=== PATIENT | female | born 2000 | race Caucasian/White ===

== ENCOUNTER 2024-05-18 11:20 | Inpatient (IN) ==
[2024-05-18] MEDS ORDERED: Al Hydrox/Mg Hydrox/Simet LIQ 30 ML UDC PO PRN ×2 (15:51→15:52)
[2024-05-18 16:37] LABS: ABS Lymphocytes 1.6 10^3/uL (1.0-4.8); ABS Monocytes 0.5 10^3/uL (0.0-0.9); ABS Neutrophils 4.3 10^3/uL (1.5-7.6); ABS Nucleated RBC 0.01 10^3/ul; Eosinophil % 0.6 %; Hematocrit 42.8 % (35-45); Hemoglobin 14.4 g/dL (11.5-14.3); Lymphocyte % 25.1 %; Mean Corpuscular Hemoglobin 27.9 pg (27-33); Mean Corpuscular Hgb Conc 33.5 g/dL (31-36); Mean Corpuscular Volume 83.2 fL (80-97); Mean Platelet Volume 7.7 fL (7.5-11.2); Nucleated Red Blood Cells % 0.2 %/100WBC (0.0-0.8); Platelet Count 293 10^3/uL (150-450); Red Blood Count 5.14 10^6/uL (3.63-4.92); Red Cell Distribution Width 13.9 % (12-17); White Blood Count 6.4 10^3/uL (3.8-11.8)
[2024-05-18 16:40] LABS: Urine Appearance Clear; Urine Bilirubin Negative (Negative); Urine Blood Negative (Negative); Urine Color Light-Yellow; Urine Glucose Negative (Negative); Urine Ketones Negative (Negative); Urine Nitrite Negative (Negative); Urine Protein Negative (Negative); Urine Specific Gravity 1.012 (1.002-1.030); Urine Urobilinogen Negative (Negative)
[2024-05-18 16:57] LABS: ALT 29 U/L (7-52); AST 31 U/L (13-39); Acetaminophen < 15 mcg/mL; Albumin 4.6 g/dL (3.5-5.7); Albumin/Globulin Ratio 1.6 (1-3); Alcohol, S < 13 mg/dL (<13); Alkaline Phosphatase 63 U/L (35-149); Anion Gap 3 mmol/L (2-16); Blood Urea Nitrogen 9 mg/dL (6-24); CO2 Carbon Dioxide 30 mmol/L (22-32); Calcium 9.9 mg/dL (8.6-10.3); Chloride 105 mmol/L (101-111); Creatinine, Serum 0.83 mg/dL (0.51-0.95); Globulin 2.9 g/dL (2-4); Glucose 85 mg/dL (70-100); Potassium 3.9 mmol/L (3.5-5.0); Salicylate < 2.50 mg/dL (<30); Sodium 138 mmol/L (135-145); Total Protein 7.5 g/dL (6.4-8.9); eGFR CKD-EPI 100.9 (>60)
[2024-05-18 17:09] LABS: Urine Benzodiazepine Screen None Detected (None Detect); Urine Cannabinoids Screen None Detected (None Detect); Urine Opiates Screen None Detected (None Detect)
[2024-05-18 17:12] LABS: HCG Pregnancy < 0.60 mIU/mL; TSH Ultra Thyroid Stim Horm 1.23 mcIU/mL (0.34-5.60)
[2024-05-18 20:53] VITALS: BP 107/74
[2024-05-19] MEDS ORDERED: Vitamin THERAPEUTIC TAB PO SCH (09:00)
[2024-05-19] MEDS: DULoxetine DR 30 mg CAP PO SCH (09:38)
[2024-05-19] MEDS: Vitamin THERAPEUTIC TAB PO SCH (09:39)
[2024-05-19] MEDS: CMCS: Testosterone GEL 1.62% 40.5 MG/2.5 GM GEL (NF) TOPICAL SCH (16:36)
[2024-05-20 08:25] LABS: HDL Cholesterol 33.3 mg/dL
[2024-05-20] MEDS: DULoxetine DR 60 mg CAP PO SCH (10:30)
== END 2024-05-20 13:00 | disposition home or self-care (01) | DRG 754 ==
LOC: ED 11:20 → EDHOLD 15:26 → BSU 20:12
PROVIDERS: ADMIT Psychiatry & Neurology Psychiatry; ATTEND Psychiatry & Neurology Psychiatry